=== PATIENT | male | born 1990 | race Caucasian/White ===

== ENCOUNTER 2020-05-15 21:11 | Inpatient (IN) | payer OTHER, SELFPAY ==
[~2020-05-15] VITALS: Ht 175.3 cm; Wt 96.6 kg
[2020-05-15 21:26] VITALS: Ht 175.3 cm; Wt 96.6 kg
[2020-05-15 22:48] LABS: PLATELET COUNT 179 x10^3mcL (130-400)
[2020-05-15 22:52] LABS: CALCIUM 8.4 mg/dL (8.5-10.1); CARBON DIOXIDE 24.6 mmol/L (21-32); CHLORIDE SERUM 99 mmol/L (98-107); CREATININE SERUM 1.3 mg/dL (0.7-1.3); GFR1 > 60 mL/min; GLUCOSE SERUM 82 mg/dL (74-106); POTASSIUM SERUM 4.5 mmol/L (3.5-5.1); SODIUM SERUM 132 mmol/L (136-145)
[2020-05-15 23:05] LABS: ALKALINE PHOSPHATASE 106 U/L (46-116); ALT/SGPT 36 U/L (16-63); AST/SGOT 23 U/L (15-37); BILIRUBIN TOTAL 0.5 mg/dL (0.20-1.00); TOTAL PROTEIN, SERUM 6.7 g/dL (6.4-8.2)
[2020-05-15 23:07] LABS: ALBUMIN 3.1 g/dL (3.4-5.0)
[2020-05-15 23:18] LABS: RED CELL DISTRIBUTION WIDTH 18.7 % (11.5-14.5)
[2020-05-15 23:20] LABS: BAND NEUTROPHIL 2 % (0-10); SEGMENTED NEUTROPHILS 3 % (37-75); rbc morphology (normal/abnorm) ABNORMAL (NORMAL)
[2020-05-15 23:21] LABS: PLATELET MORPHOLOGY PLATELETS NORMAL
[2020-05-16 01:05] LABS: MAGNESIUM 1.7 mg/dL (1.8-2.4); PHOSPHOROUS 2.6 mg/dL (2.5-4.9)
[2020-05-16 01:40] LABS: CHOLESTEROL/HDL RATIO 3.6
[2020-05-16 05:00] LABS: CALCIUM 7.4 mg/dL (8.5-10.1); CARBON DIOXIDE 17.2 mmol/L (21-32); CREATININE SERUM 1.5 mg/dL (0.7-1.3)
[2020-05-16 05:05] LABS: PLATELET COUNT 185 x10^3mcL (130-400)
[2020-05-16 05:15] LABS: RED CELL DISTRIBUTION WIDTH 18.4 % (11.5-14.5)
[2020-05-16 05:16] LABS: BAND NEUTROPHIL 5 % (0-10); SEGMENTED NEUTROPHILS 5 % (37-75); rbc morphology (normal/abnorm) ABNORMAL (NORMAL)
[2020-05-16 05:17] LABS: PLATELET MORPHOLOGY PLATELETS NORMAL
[2020-05-16 07:06] LABS: microscopic required? NO
[2020-05-16 08:07] LABS: UA SPECIFIC GRAVITY <=1.005 (1.005-1.035); urine erythrocyte NEGATIVE (NEGATIVE)
[2020-05-16] MEDS ORDERED: ELIQUIS5 MG PO (08:43)
[2020-05-16] MEDS ORDERED: SULFAMETHOXAZOL1 TAB PO (08:43)
[2020-05-16] MEDS ORDERED: XTAMPZA ER36 MG PO (08:48)
[2020-05-16] MEDS ORDERED: ELA50 PO (08:49)
[2020-05-16] MEDS ORDERED: ZOVIRAX400 MG PO (08:51)
[2020-05-16] MEDS ORDERED: HORIZANT300 MG PO (08:51)
[2020-05-16] MEDS ORDERED: NOXAFIL100 MG PO (08:52)
[2020-05-16] MEDS ORDERED: INDERAL LA60 MG PO (08:52)
[2020-05-16] MEDS ORDERED: PROTONIX40 MG/Pac1 PO (08:53)
[2020-05-16] MEDS ORDERED: VENCLEXTA100 MG PO (08:53)
[2020-05-16] MEDS ORDERED: BUPROPION HYDR150 M1 PO (08:54)
[2020-05-16 10:34] LABS: CALCIUM 8.5 mg/dL (8.5-10.1); CARBON DIOXIDE 21.8 mmol/L (21-32); CHLORIDE SERUM 103 mmol/L (98-107); CREATININE SERUM 1.3 mg/dL (0.7-1.3); GFR1 > 60 mL/min; GLUCOSE SERUM 101 mg/dL (74-106); POTASSIUM SERUM 4.1 mmol/L (3.5-5.1); SODIUM SERUM 134 mmol/L (136-145)
[2020-05-16 11:13] LABS: IRON 15 ug/dL (65-170); TOTAL IRON BINDING CAPACITY 110 ug/dL (250-450)
[2020-05-16 11:39] VITALS: BP 108/58
[2020-05-16 11:56] LABS: RED BLOOD CELLS 2.19 M/mm3 (4.52-5.90)
[2020-05-16 12:30] VITALS: BP 94/51
[2020-05-16 17:09] VITALS: BP 109/66
== END 2020-05-16 17:55 | disposition short-term general hospital (02) | DRG 871 ==
LOC: ED 21:11 → IC 23:46
PROVIDERS: Emergency Medicine; ADMIT Internal Medicine; ATTEND Internal Medicine
DX: A41.9 Sepsis, unspecified organism (principal); R65.21 Severe sepsis with septic shock; C95.90 Leukemia, unspecified not having achieved remission; C41.9 Malignant neoplasm of bone and articular cartilage, unspecified; E87.1 Hypo-osmolality and hyponatremia; E44.0 Moderate protein-calorie malnutrition; N17.9 Acute kidney failure, unspecified; R50.81 Fever presenting with conditions classified elsewhere; Z20.828 Contact with and (suspected) exposure to other viral communicable diseases; D64.9 Anemia, unspecified; Z94.6 Bone transplant status; Z84.89 Family history of other specified conditions
CPT/HCPCS: G0378; J0692; J1885; J3370; J3490; J7030; J7040; J7050; Q0092; Q9967; U0003-CS